=== PATIENT | female | born 1945 | race Caucasian/White ===

== ENCOUNTER → 2018-09-09 09:25 | Outpatient (CLI) | payer MEDICARE, OTHER ==
[2016-06-13 11:00] VITALS: BMI 34.4
[~2018-09-09 09:25] MED LIST: AMOXICILLIN500 M1 PO; BAYER CHEWABLE81 MG PO; BIOTIN5 MG PO; CALTRATE 600 M600 M1 PO; CO Q-10100 MG PO; COREG 3.1253.125 MG PO; FISH OIL 1,0001 CA1 PO; HYDROCODONE-APA1 TAB PO; HYDROXYZINE HCL10 MG PO; MAGNESIUM OXID250 MG PO; MULTIPLE VITAMI1 TA1 PO; PHENERGAN25 M1 PO; PRAVACHOL80 MG PO; VITAMIN B-122500 MCG PO; VITAMIN C1000 MG PO; VITAMIN D2000 UNIT PO
== END | disposition home or self-care (01) ==
LOC: D.RT 09:25
DX: J44.9 Chronic obstructive pulmonary disease, unspecified (principal)